=== PATIENT | female | born 1990 | race Caucasian/White ===

== ENCOUNTER 2021-07-20 20:53 | Emergency (ER) | payer MEDICAID ==
[~2021-07-20] VITALS: Ht 162.6 cm; Wt 38.0 kg
--- NOTE | 2021-07-21 01:07 | NUR ---
pt reports her babys father call police for her tonight and that she was escorted by officer to vooulntarily come to er for evaluation of her thoughts and hallucinations. Pt reports she "smoked a bowl earlier and the thoughs were about "my babies father is inside me and I cant " endorses additional AH. Dr. Zelaya callng pts mother marsha ([phone]) and then calling pts daughters grandmother (whom her daughter is being cared for at this time). Pt states I'm educated and dont have a regular history of these type of thoughts.
[2021-07-21 01:36] LABS: ALANINE AMINOTRANSFERASE 27 U/L (12-78); ALBUMIN 4.8 G/DL (3.4-5.0); ALBUMIN/GLOBULIN RATIO 1.7 (1.1-1.5); ALKALINE PHOSPHATASE 72 IU/L (46-116); ANION GAP 13 (8-16); ASPARTATE AMINO TRANSFERASE 14 U/L (10-37); BILIRUBIN,TOTAL 0.4 MG/DL (0.1-1.0); BLOOD UREA NITROGEN 7 MG/DL (7-18); BUN/CREATININE RATIO 10.9 (6.6-38.0); CALCIUM 8.8 MG/DL (8.5-10.1); CHLORIDE 105 MMOL/L (99-107); CREATININE 0.64 MG/DL (0.40-0.90); GLUCOSE 102 MG/DL (70-104); POTASSIUM 3.3 MMOL/L (3.5-5.1); SODIUM 144 MMOL/L (135-145); TOTAL CARBON DIOXIDE 26.5 MMOL/L (24-32); TOTAL PROTEIN 7.7 G/DL (6.4-8.2); eGFR > 90 ML/MIN
[2021-07-21 01:45] LABS: ETHANOL < 0.010 GM/DL (0.0-0.010)
[2021-07-21 01:50] LABS: ACETAMINOPHEN < 2.0 UG/ML (10-30)
[2021-07-21 01:59] LABS: BASOPHILS # (AUTO) 0.1 X10'3 (0-0.2); BASOPHILS % (AUTO) 0.4 % (0-1); EOSINOPHILS % (AUTO) 0.2 % (0-6); HEMATOCRIT 37.1 % (35.0-45.0); HEMOGLOBIN 13.1 g/dl (12.0-16.0); LYMPHOCYTES # (AUTO) 2.2 X10'3 (1.1-4.8); LYMPHOCYTES % (AUTO) 18.5 % (21-51); MEAN CORPUSCULAR HEMOGLOBIN 30.5 PG (27.0-31.0); MEAN CORPUSCULAR HGB CONC 35.3 g/dL (33.0-36.5); MEAN CORPUSCULAR VOLUME 86.3 FL (78-98); MONOCYTES # (AUTO) 0.7 X10'3 (0-0.9); MONOCYTES % (AUTO) 5.5 % (2-12); NEUTROPHILS # (AUTO) 9.1 X10'3 (1.8-7.7); NEUTROPHILS % (AUTO) 75.4 % (42-75); PLATELET COUNT 352 X10'3 (140-440); RED BLOOD COUNT 4.29 X10'6 (4.20-5.60); RED CELL DISTRIBUTION WIDTH 12.8 % (11.5-14.5); WHITE BLOOD COUNT 12.1 X10'3 (4.5-11.0)
--- NOTE | 2021-07-21 04:33 | NUR ---
DRESSED IN GREEN SCRUBS AND PERSONAL BELONGINGS INVENTORIED. PT UPDATED ON PLAN OF CARE BY ROLA MCDANIEL RN.
[2021-07-21] MEDS ORDERED: NO HOME MEDS (05:29)
--- NOTE | 2021-07-21 05:33 | NUR ---
Pt awakened for am vs and covid swab collected.
[2021-07-21 05:35] VITALS: BP 107/72
[2021-07-21 06:25] LABS: URINE AMPHETAMINE SCREEN NEGATIVE (Neg); URINE BARBITUATE SCREEN NEGATIVE (Neg); URINE BENZODIAZEPINES SCREEN NEGATIVE (Neg); URINE CANNABINOID SCREEN POSITIVE (Neg); URINE COCAINE SCREEN NEGATIVE (Neg); URINE METHADONE SCREEN NEGATIVE (Neg); URINE OPIATE SCREEN NEGATIVE (Neg); URINE PHENCYCLIDINE SCREEN NEGATIVE (Neg)
[2021-07-21 06:28] LABS: URINE HCG NEGATIVE (NEG)
--- NOTE | 2021-07-21 07:12 | NUR ---
PT'S MOTHER CALLED FOR STATUS UPDATE. NOTIFIED THAT PT IS ASLEEP AND THAT I COULD NOT GIVE HER ANY INFORMATION WITHOUT PT'S PERMISSION. MOTHER REQUESTED THAT PT BE NOTIFIED THAT SHE HAD CALLED.
--- NOTE | 2021-07-21 07:40 | NUR ---
PT IS AWAKE AND IRRITATED THAT SHE CAN NOT HAVE A CIGARETTE OR USE HER VAPE PEN. PT INFORMED THAT HER MOTHER CALLED. PT WAS ASKED FOR PERMISSION TO PROVIDE HER MOTHER, PRINCE, INFORMATION REGARDING HER STATUS WHILE IN THE HOSPITAL, PT HAS GIVEN PERMISSION. PT REQUESTED A PHONE TO CALL HOME AND SPEAK WITH HER MOTHER AND PHONE WAS PROVIDED
--- NOTE | 2021-07-21 07:59 | NUR ---
PT IS TEARFUL AND ANXIOUS AFTER SPEAKING WITH HER MOTHER. PT STATES THAT SHE IS WORRIED ABOUT HER DAUGHTER AND WANTS THE BEST FOR HER. PT C/O BACK PAIN. DR VIRGEN NOTIFIED, VERBAL ORDER RECEIVED FOR ATIVAN 1MG PO AND IBUPROFEN 400MG PO. ORDER PLACED WITH PHARMACY
[2021-07-21] MEDS ORDERED: LORazepam 1 MG tablet PO ONE (08:00)
[2021-07-21] MEDS ORDERED: ibuprofen tablet 400 MG TABLET PO ONE (08:00)
--- NOTE | 2021-07-21 08:21 | NUR ---
SAFETY BREAKFAST TRAY DELIVERED TO BEDSIDE Addendum: 07/21/21 at 1325 by JU PT IS BEING DC HOME BY [facility]. [facility] ATTEMPTED TO CONTACT FAMILY, NO ANSWER AT PROVIDED PHONE #s. WILL CONTINUE TO TRY TO REACH FAMILY AT THE REQUEST OF [facility]
--- NOTE | 2021-07-21 13:01 | NUR ---
[facility] IN WITH PT FOR EVALUATION
== END 2021-07-21 14:40 | disposition home or self-care (01) ==
LOC: ER 20:54
DX: F78 Other intellectual disabilities (principal); F32.9 Major depressive disorder, single episode, unspecified; F41.9 Anxiety disorder, unspecified; R44.2 Other hallucinations; F12.10 Cannabis abuse, uncomplicated
CPT/HCPCS: 36415; 80053; 80305; 80320; 80329; 81025; 84443; 85025; 87635; 99285; C9803